=== PATIENT | female | born 1950 | race Caucasian/White ===

== ENCOUNTER 2020-02-06 21:47 | Emergency (ER) | payer MEDICARE, SELFPAY ==
[2020-02-06 21:51] VITALS: BP 169/84; PULSE 66; RESP 18; TEMP 35.9; O2SAT 100; BMI 28.3
--- NOTE | 2020-02-06 22:34 | ED_ITS ---
HPI - Allergic Reaction General Chief complaint: Allergic Reaction Stated complaint: FACIAL SWELLING Time Seen by Provider: 02/06/20 22:27 Source: patient Mode of arrival: ambulatory History of Present Illness HPI narrative: patient states about 2 hours ago started with facial swelling on the right side. No shortness of breath no wheezing no respiratory distress. Denies chest pain. Denies nausea or diaphoresis. Patient states may have eaten some shrimp that caused this. Patient denies tongue swelling. Has never happened before when the medication is a high cholesterol was called bedside on arrival to emergency department severity of illness MD complaint: facial swelling Onset (ago): hour(s) ( 2 hours) Treatment prior to arrival: none Previous Allergic Reaction History: none Related Data Allergies Allergy/AdvReac Type Severity Reaction Status Date / Time No Known Allergies Allergy Verified 02/06/20 21:56 Review of Systems Review of Systems: Yes all other systems are reviewed and are negative Constitutional: Comments: Constitutional : No Weight loss, No Fever, No Chills, No Night Sweats, No Fatigue, No Malaise ENT/Mouth : right-sided facial swelling, No Hearing loss, No Ear Pain, No Nasal Congestion, No Sinus Pain, No Hoarseness, No sore throat, No Rhinorrhea, No Swallowing Difficulty Eyes: No Eye Pain, No Swelling, No Redness, No Foreign Body, No Discharge, No Vision Changes Cardiovascular : No Chest Pain, No SOB, No Dyspnea on Exertion, No Orthopnea, No Edema, No Palpitations Respiratory : No Cough, No Sputum, No Wheezing, No Smoke Exposure, No Dyspnea Gastrointestinal : No Nausea, No Vomiting, No Diarrhea, No Constipation, No abdominal Pain, No Hematochezia, No Melena Genitourinary : no irregular bleeding, No Dysuria, No Urinary Frequency, No Hematuria, No Urinary Incontinence, No Urgency, No Flank Pain, No Urinary Flow Changes, No Hesitancy Musculoskeletal : No joint pain, No Myalgias, No Joint Swelling Skin : No Skin Lesions, No rash Neuro : No Weakness, No Numbness, No Paresthesias, No Loss of Consciousness, No Dizziness, No Headache Psych : No Anxiety/Panic, No Depression, No SI/HI/AH/VH, No Social Issues, Heme/Lymph: No Bruising, No Bleeding,No Lymphadenopathy Endocrine : No Polyuria, No Polydipsia, No Temperature Intolerance PENDING SALE TO [facility] Past Medical History Medical History (Updated 02/07/20 @ 02:46 by Rangel Kamara DO) Hyperlipidemia Family History Family History (Updated 02/06/20 @ 22:35 by Rangel Kamara DO) Other Family history non-contributory Social History Social History (Updated 02/06/20 @ 22:36 by Rangel Kamara DO) Alcohol intake: unknown Smoking Status: Current every day smoker Use of substances other than those prescribed or required for medical reasons: No Advance Directives: No Advance Directives Information Provided: No Physical Exam Vital Signs and I&O and Narrative: Vital Signs and I&O: Vital Signs Temp 96.7 F L 02/06/20 21:51 Pulse 76 02/07/20 00:22 Resp 18 02/06/20 21:51 BP 169/84 H 02/06/20 21:51 Pulse Ox 100 02/07/20 00:22 Intake & Output 02/06/20 02/06/20 02/07/20 06:59 18:59 06:59 Weight 77.111 kg Body Mass Index 28.3 reviewed pulse ox interpreted by me 100% room air Const: Other: Appearance: Alert. Oriented X3. No acute distress. Eyes: Pupils equal, round and reactive to light. ENT: Pharynx normal. right-sided upper and lower lip edema. No tongue edema. No lacerations no erythema Neck: Normal inspection. Neck supple. No lymph nodes noted. No crepitus CVS: Normal heart rate and rhythm. Pulses normal. Normal S1 and S2 Respiratory: No respiratory distress. Breath sounds normal. No Wheezing. No rales Abdomen: Soft and nontender. No rigidity. No distention. good BS x4 Skin: Skin warm and dry. Normal skin color. Normal skin turgor. Extremities: No lower extremity edema. Neurovascular intact to all extremities. No Lacerations. No Rash Neuro: Oriented X 3. No motor deficit. No sensory deficit. Moving all extermities. No slurred speech. Course Course Course Narrative: patient immediately giving IM epinephrine. IV started with IV steroids and IV Pepcid oxygen placed multiple re-evaluations by me Reevaluation(s) Reevaluation #1: re-evaluation without progression of swelling facial Time: 22:53 Reevaluation #2: read exam done with much improved swelling to the face. No wheezing. No signs of anaphylaxis at this point I discussed the patient's reasons to follow-up in the emergency department and to call 911 Time: 02:45 MDM - Allergic Reaction MDM Narrative Medical decision making narrative: 69-year-old female with facial edema most likely related to allergies. Given IM epi and IV steroids much improved after 5 hours Emergency Department will discharge home Lab Data Result diagrams: 02/06/20 22:38 02/06/20 22:38 Labs: Lab Results 02/06/20 02/06/20 Range/Units 22:38 22:38 WBC 7.1 (4.8-10.8) X10*3/uL RBC 4.64 (4.20-5.50) X10*6/uL Hgb 12.4 (12.0-16.0) g/dl Hct 38.8 (37-47) % MCV 83.6 (80-98) fL MCH 26.7 L (27.0-33.0) pg MCHC 32.0 (31.0-35.0) g/dl RDW 13.3 (11.0-16.0) % Plt Count 228 (160-400) X10*3/uL MPV 10.7 (9.4-12.3) fL Immature Gran % (Auto) 0.1 (0.0-0.4) % Neut % (Auto) 58.0 (45-73) % Lymph % (Auto) 26.9 (20-40) % [place] % (Auto) 9.2 (2-11) % Eos % (Auto) 4.7 H (0-4) % Baso % (Auto) 1.1 (0-2) % Lymph # (Auto) 1.9 (1.2-4.9) X10*3/uL [place] # (Auto) 0.7 (0.1-1.2) X10*3/uL Eos # (Auto) 0.3 (0.0-0.4) X10*3/uL Baso # (Auto) 0.1 (0.0-0.2) X10*3/uL Abs Immat Gran (auto) 0.01 (0.00-0.03) X10*3/uL Absolute Neuts (auto) 4.1 (2.0-8.3) X10*3/uL Absolute Nucleated RBC 0.000 (0.0-0.012) X10*3/uL Nucleated RBC % (auto) 0.0 (0.0-0.2) /100WBC Sodium 137 (135-145) mmol/L Potassium 4.3 (3.3-5.1) mmol/l Chloride 103 (96-108) mmol/L Carbon Dioxide 24 (22-29) mmol/L Anion Gap 14 (12-20) BUN 17 H (9-16) mg/dL Creatinine 0.83 (0.5-1.4) mg/dL Estim Creat Clear Calc 65.6 Estimated GFR > 60 Random Glucose 124 H (60-115) mg/dL Calcium 8.9 (8.4-10.2) mg/dL Critical Care Time Critical Care Time Critical Care Time: Yes Total Critical Care Time: 35 Attestation: I attest to my time spent for critical care Discharge Plan Discharge Clinical Impression: Allergic reaction Qualifiers: Encounter type: initial encounter Qualified Code(s): T78.40XA - Allergy, unspecified, initial encounter Patient Disposition: Home, Self-Care Instructions: Allergies (ED) Additional Instructions: Thank you for visiting the emergency department today. If your symptoms worsen or do not resolve completely please return to the emergency department immediately or call 911. if he have any questions please call your primary care physician Referrals: [facility] [Provider Group] - 2 days Interventions: ED Discharge Assessment Last Done: 02/07/20 03:34 Discharge Date/Time: 02/07/20 03:34
[2020-02-06] MEDS: EPINEPHrine 1 MG/ML VIAL 0.3 MG IM (22:38)
[2020-02-06] MEDS: methylPREDNISolone Sod Succ/PF 125 MG/2 ML VIAL 60 MG IVPUSH (22:43)
[2020-02-06] MEDS: Famotidine/PF 20 MG/2 ML VIAL IVPUSH (22:43)
[2020-02-06 22:45] LABS: MANUAL DIFF FLAG NO
[2020-02-06 22:47] LABS: Basophils Absolute Auto 0.1 X10*3/uL (0.0-0.2); Basophils Percent Auto 1.1 % (0-2); Eosinophils Absolute Auto 0.3 X10*3/uL (0.0-0.4); Eosinophils Percent Auto 4.7 % (0-4); Hematocrit 38.8 % (37-47); Hemoglobin 12.4 g/dl (12.0-16.0); Imm Gran Abs Auto 0.01 X10*3/uL (0.00-0.03); Imm Gran Pct Auto 0.1 % (0.0-0.4); Lymphocytes Absolute Auto 1.9 X10*3/uL (1.2-4.9); Lymphocytes Percent Auto 26.9 % (20-40); Mean Corpuscular Hemoglobin 26.7 pg (27.0-33.0); Mean Corpuscular Volume 83.6 fL (80-98); Mean Platelet Volume 10.7 fL (9.4-12.3); Monocytes Absolute Auto 0.7 X10*3/uL (0.1-1.2); Monocytes Percent Auto 9.2 % (2-11); Neutrophils Absolute Auto 4.1 X10*3/uL (2.0-8.3); Platelet Count 228 X10*3/uL (160-400); Red Blood Count 4.64 X10*6/uL (4.20-5.50); Red Cell Distribution Width 13.3 % (11.0-16.0); White Blood Count 7.1 X10*3/uL (4.8-10.8)
--- NOTE | 2020-02-06 22:48 | PC.NURSE ---
Iv access obtained, labs drawn and set. Pt medicated with epi, pepcid, and solumedrol as charted in JUN. Pt reports eating seafood earlier this evening and started experiencing some facial swelling approx 2 hours ago. No s/sx resp distress at this time, resp reg and even, talking in full, clear sentences. Spo2 96% on room air. NSR on tele rate 83.
--- NOTE | 2020-02-06 22:56 | PC.NURSE ---
YEMI ELAM [phone] [facility]
[2020-02-06 23:20] LABS: Anion Gap 14 (12-20); Blood Urea Nitrogen 17 mg/dL (9-16); Calcium 8.9 mg/dL (8.4-10.2); Carbon Dioxide 24 mmol/L (22-29); Chloride 103 mmol/L (96-108); Creatinine Clr Calc Pharmacy 65.6; Estimated Glomerular Filt Rate > 60; Glucose Random 124 mg/dL (60-115); Potassium 4.3 mmol/l (3.3-5.1); Sodium 137 mmol/L (135-145)
[2020-02-07 00:22] VITALS: PULSE 76; O2SAT 100
== END 2020-02-07 03:34 | disposition home or self-care (01) ==
PROVIDERS: Emergency Provider Emergency Medicine
DX: L27.2 Dermatitis due to ingested food (principal)
CPT/HCPCS: 36415; 80048; 85025; 96372; 96374; 96375; 99284; 99285; 99291; J2930

== ENCOUNTER 2020-04-11 05:38 | Inpatient (IN) | payer MEDICARE, SELFPAY ==
[2020-04-11] VITALS (35 sets, daily range): BP systolic 114–184; BP diastolic 58–104; PULSE 53–143; RESP 14–22; TEMP 35.8–36.7; O2SAT 95–100; BMI 31.2
--- NOTE | 2020-04-11 | CT_ITS ---
EXAMINATION: CT CHEST WITHOUT IV CONTRAST CT ABDOMEN AND PELVIS WITHOUT IV CONTRAST CLINICAL INFORMATION: Intubated patient requiring CT imaging evaluation of malignancy. COMPARISON: Chest radiograph from 04/11/2020. TECHNIQUE: Noncontrast multidetector CT imaging examination of the chest, abdomen and pelvis was performed. Axial images are displayed at 0.6 mm and 5 mm slice thickness. Coronal and sagittal reformatted images were generated at the technologist's workstation and submitted for review. This CT examination was performed using dose optimization techniques as appropriate, variously including the following: *Automated exposure control *Adjustment of mA and/or kV according to patient size (this includes techniques or standardized protocols for targeted exams where dose is matched to indication/reason for exam; i.e. extremities or head) *Use of iterative reconstruction technique DLP: 1161 mGy-cm FINDINGS: CHEST - LUNGS AND PLEURA: Endotracheal tube remains low in position with its tip at the level of the manuela, similar compared to the chest radiograph acquired earlier in the day. Recommend tube repositioning. Bronchial tobar are diffusely thickened. This suggest possibility of bronchitis or asthma. Mild atelectasis is present in the dependent right lower lobe. Secretions within left lower lobe bronchi partially occlude the bronchi, and left lower lobe is partially collapsed. No evidence of pulmonary mass. No pneumothorax. There is likely a trace amount of posterior pleural fluid, bilaterally. MEDIASTINUM/LOWER NECK: Cardiac chambers and pulmonary arteries are normal in size. Mild atherosclerosis of the thoracic aorta without aneurysm. No pericardial effusion. Thyroid gland is grossly unremarkable. No mediastinal mass. Enteric tube courses along the esophagus and into the stomach. LYMPHATICS: No pathologic sized axillary, hilar or mediastinal lymph nodes. CHEST WALL/BONES: No chest wall mass. Multilevel discovertebral degenerative change of the thoracic spine. No aggressive osseous lesions. ABDOMEN AND PELVIS - HEPATOBILIARY: Liver has normal size and contour. Surgical clips project over the region of hepatic segment 7. Small calcified granuloma within the liver. No focal liver lesion is detected on this noncontrast examination. No intrahepatic bile duct dilatation. Gallbladder is unremarkable. PANCREAS: No evidence of edema, mass or pancreatic ductal dilatation. SPLEEN: Normal size and attenuation. ADRENAL GLANDS: The adrenal glands are normal. 2.5 cm simple cyst is observed adjacent to the left adrenal gland, interposed between the tail the pancreas and upper pole of the left kidney. This cyst is probably arising from the kidney. The cyst has attenuation of 13 Hounsfield units. No suspicious lesion in this area of the abdomen. KIDNEYS AND URETERS: Kidneys are normal in size. No nephrolithiasis, hydronephrosis or perinephric edema. No evidence of a renal tumor on these noncontrast images. The ureters are unremarkable. BOWEL AND PERITONEUM: The tip of the enteric tube is in the distal stomach. No dilated loops of bowel. Moderate amount of fecal material is present within the colon. No focal bowel wall thickening. No evidence of mesenteric fat stranding, ascites or pneumoperitoneum. ABDOMINAL WALL: Unremarkable. VESSELS: Mild atherosclerosis of the abdominal aorta without aneurysm. No retroperitoneal mass or hematoma. LYMPH NODES: No pathologic sized lymph nodes in the abdomen or pelvis. No inguinal lymphadenopathy. BLADDER AND PELVIC VISCERA: Urinary bladder is decompressed by Fontenot catheter. No overt evidence of bladder mass, although evaluation of the bladder is limited. The uterus is absent. No pelvic mass or free fluid. 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 Vacuum disc degenerative changes at L2-L3, L4-5 and L5-S1. Degenerative disc disease in the lumbar spine is worst at L5-S1. Osteoarthritis of the pubic symphysis. Pelvic bones are intact. No suspicious lytic or osteoblastic lesion. CT/CT abdomen pelvis wo con IMPRESSION: * No imaging evidence of a malignant disease process in the chest, abdomen or pelvis. * Endotracheal tube remains abnormally low in position with its tip at the level of the manuela. Recommend repositioning the ET tube. * Bronchial tobar are mildly thickened, possibly from bronchitis. Mild atelectasis is present in the right lower lobe. There are secretions that occlude the left lower lobe bronchus, and left lower lobe is partially collapsed. Consider possibility of recent aspiration.
[2020-04-11] MEDS: EPINEPHrine 1 MG/ML VIAL 0.3 MG IM (05:53)
[2020-04-11] MEDS: Famotidine/PF 20 MG/2 ML VIAL IVPUSH (05:53)
[2020-04-11] MEDS: diphenhydrAMINE HCL 50 MG/ML VIAL IVPUSH (05:54)
[2020-04-11] MEDS: methylPREDNISolone Sod Succ/PF 125 MG/2 ML VIAL IVPUSH (05:55)
--- NOTE | 2020-04-11 06:09 | XR_ITS ---
EXAMINATION: XR CHEST CLINICAL INFORMATION: Intubation COMPARISON: None TECHNIQUE: Frontal view of the chest was obtained. FINDINGS: The endotracheal tube terminates approximately 1 cm above the manuela. The enteric tube extends below the diaphragm, tip not imaged. Heart size is within normal limits. There is mild patchy opacity in the medial left base with suggestion of volume loss. The lungs are otherwise relatively clear. There is no evidence of pneumothorax or significant pleural effusion. There are no acute osseous findings. A possible surgical clip projects over the right upper quadrant of the abdomen. XR/XR chest 1V IMPRESSION: Endotracheal tube is slightly low in position, terminating approximately 1 cm above the manuela. This result was discussed with Anaid Stone MD by telephone on 04/11/2020 7:11 AM. Mild patchy opacity in the medial left lung base with suggestion of volume loss, possibly representing atelectasis.
--- NOTE | 2020-04-11 06:12 | ECG_ITS ---
Test Reason : ANAPHYLAXIS Blood Pressure : / mmHG Vent. Rate : 103 BPM Atrial Rate : 103 BPM P-R Int : 198 ms QRS Dur : 094 ms QT Int : 360 ms P-R-T Axes : 057 -16 021 degrees QTc Int : 471 ms Sinus tachycardia Possible Left atrial enlargement Incomplete right bundle branch block Left ventricular hypertrophy Nonspecific ST abnormality Abnormal ECG No previous ECGs available Referred By: Anaid Stone Electronically Signed By:ZOILA BURNS
--- NOTE | 2020-04-11 06:13 | ED_ITS ---
HPI - Allergic Reaction General Chief complaint: Allergic Reaction Stated complaint: allergic reaction Time Seen by Provider: 04/11/20 05:43 Source: patient Mode of arrival: ambulatory Limitations: no limitations History of Present Illness HPI narrative: This is a 69-year-old female with past medical history of hype rlipidemia currently taking rosuvastatin who presents after having awakened this morning and finding that she had tongue swelling. She states that this is her 4th episode of facial associated swelling and she is currently being worked up but has not had a formal appointment. Otherwise, she denies any fevers, chills, cough, sore throat, chest pain/palpitations, shortness of breaths and states shannon t she is able to swallow. She denies any new beauty products, bathing products, food items, medications. Related Data Allergies Allergy/AdvReac Type Severity Reaction Status Date / Time No Known Allergies Allergy Verified 02/06/20 21:56 Review of Systems Review of Systems: Pertinent positives and negatives as stated in HPI and 10 point review of systems is otherwise negative. PMFSH Past Medical History Source: nursing notes reviewed Medical History (Updated 04/11/20 @ 07:06 by Anaid Stone MD) Angioedema Hyperlipidemia Family History Family History Other Family history non-contributory Social History Social History Alcohol intake: unknown Smoking Status: Current every day smoker Advance Directives: No Advance Directives Information Provided: No Physical Exam Vital Signs: Vital Signs: Last Vital Signs Temp 96.8 F 04/11/20 07:09 Pulse 67 04/11/20 07:18 Resp 18 04/11/20 07:18 BP 146/77 H 04/11/20 07:18 Pulse Ox 99 04/11/20 07:18 Body Mass Index 31.2 VITAL SIGNS: Reviewed. GENERAL: Well developed, well nourished, in no acute distress. HEAD: Normocephalic/atraumatic, EYES: PERRLA, EOMI intact without pain, no nystagmus/pallor/icterus noted EARS: Ext canals without abnormality, TMs non-bulging and non-erythematous NOSE: Nares patent bilateral OROPHARYNX: Right-sided tongue swelling with elevation of oral floor, no stridor or wheezing appreciated on initial examination NECK: Supple, no adenopathy LUNGS: Normal breath sounds. No adventitious sounds or accessory muscle use. SpO2<100> CARDIOVASCULAR: Regular rate and rhythm without noted murmurs, no JVD or lower extremity edema. ABDOMEN: Soft, non-tender, non-distended with bowel sounds. No rigidity. No guarding. No palpable masses or hernias noted MUSCULOSKELETAL: No tenderness, deformities, or effusions noted on gross inspection. EXTREMITIES: No cyanosis, clubbing or edema. SKIN: Inspection of the skin reveals no rashes, ulcerations, jaundice, pallor, or petechiae. NEUROLOGIC: Alert and oriented x 4. Strength and sensation to light touch were grossly intact x 4. Course Course Course Narrative: This is a 69-year-old female with history and clinical presentation consistent with acute onset angioedema unknown etiology and on initial evaluation patient was emergently treated with EpiPen, Benadryl, Pepcid, Solu-Medrol. Patient was noted to remain calm and continued to oxygenate well and was observed for a few minutes with intermittent conversation. Although patient stated that she felt her tongue was improving on clinical exam it was clear that patient's speech was becoming more garbled and the decision to intubate was made. The entire procedure was explained to the patient and she acknowledged understanding and agreed to the procedure. Patient was successfully intubated and a propofol drip was started. Patient remains hemodynamically stable, and 0GT tube was placed, Fontenot catheter was placed, labs/EKG/urinalysis were obtained. This case was discussed with Dr. Peterson, the ambulatory care coordinator, who is agreeable to the admission. All labs and imaging as well as urinalysis were reviewed. Informed by Radiology that ETT was 1 cm above the manuela and RT was notified that the tube would need to be pulled back to 24 at the lip. Procedures Intubation Time out performed: Yes sedative: Etomidate Mg Given: 20 paralytic: Rocuronium Mg Given: 90 Laryngoscope: fiber optic video scope Assist Device Used: fiber optic device ET Tube Size: 7.5 ET Tube Uncuffed: No Tube Secured Depth (cm): 25 Tube Secured Location: lips Tube Placement Confirmation: visualized tube passing through cords, equal breath sounds bilaterally and confirmation by capnometry Patient Tolerated Procedure: well Intubation Complications: none MDM - Allergic Reaction Lab Data Result diagrams: 04/11/20 06:35 04/11/20 06:35 Labs: Lab Results 04/11/20 04/11/20 04/11/20 Range/Units 06:35 06:35 06:50 WBC 8.3 (4.8-10.8) X10*3/uL RBC 4.80 (4.20-5.50) X10*6/uL Hgb 13.0 (12.0-16.0) g/dl Hct 40.9 (37-47) % MCV 85.2 (80-98) fL MCH 27.1 (27.0-33.0) pg MCHC 31.8 (31.0-35.0) g/dl RDW 13.0 (11.0-16.0) % Plt Count 219 (160-400) X10*3/uL MPV 11.1 (9.4-12.3) fL Immature Gran % (Auto) 0.6 H (0.0-0.4) % Neut % (Auto) 32.6 L (45-73) % Lymph % (Auto) 51.5 H (20-40) % [place] % (Auto) 8.8 (2-11) % Eos % (Auto) 5.3 H (0-4) % Baso % (Auto) 1.2 (0-2) % Lymph # (Auto) 4.3 (1.2-4.9) X10*3/uL [place] # (Auto) 0.7 (0.1-1.2) X10*3/uL Eos # (Auto) 0.4 (0.0-0.4) X10*3/uL Baso # (Auto) 0.1 (0.0-0.2) X10*3/uL Abs Immat Gran (auto) 0.05 H (0.00-0.03) X10*3/uL Absolute Neuts (auto) 2.7 (2.0-8.3) X10*3/uL Absolute Nucleated RBC 0.000 (0.0-0.012) X10*3/uL Nucleated RBC % (auto) 0.0 (0.0-0.2) /100WBC Sodium 139 (135-145) mmol/L Potassium 3.5 (3.3-5.1) mmol/l Chloride 107 (96-108) mmol/L Carbon Dioxide 20 L (22-29) mmol/L Anion Gap 16 (12-20) BUN 14 (9-16) mg/dL Creatinine 0.79 (0.5-1.4) mg/dL Estim Creat Clear Calc 64.8 Estimated GFR > 60 Random Glucose 158 H (60-115) mg/dL Calcium 8.3 L D (8.4-10.2) mg/dL Total Bilirubin 0.4 (0.0-1.0) mg/dL AST 21 (5-31) U/L ALT 14 (0-31) U/L Alkaline Phosphatase 140 H (39-117) U/L Total Protein 6.8 (6.5-8.0) g/dL Albumin 4.2 (3.5-5.0) g/dL Urine Color YELLOW Urine Appearance CLEAR Urine pH 6.0 (5.0-8.0) Ur Specific [place] 1.015 (1.005-1.025) Urine Protein NEG (NEG-TRACE) MG/DL Urine Glucose (UA) NEG (NEG) MG/DL Urine Ketones NEG (NEG) MG/DL Urine Blood NEG (NEG) Urine Nitrite NEG (NEG) Ur Leukocyte Esterase NEG (NEG) ECG Data Attestation: I personally reviewed and interpreted this ECG as follows: Prior ECG tracings: not available for review Interpretation: Sinus tachycardia, HR-103, incomplete RBBB, no evidence of acute ischemia, DC/QRS/QTC are within normal limits. Critical Care Time Critical Care Time Total Critical Care Time: 60 Attestation: I personally attest to this time spent taking care of the patient. Review of documentation, coordinating with consultants, review of lab work/EKG/imaging. Discharge Plan Discharge Clinical Impression: Angioedema Qualifiers: Encounter type: subsequent encounter Qualified Code(s): T78.3XXD - Angioneurotic edema, subsequent encounter Patient Disposition: Admitted As Inpatient
--- NOTE | 2020-04-11 06:15 | PC.NURSE ---
0558 PLAN FOR INTUBATION D/T ANGIOEDEMA A RESULT OF ANAPHYLAXIS. PT STATES THIS IS 4TH INCIDENT OF SMILIAR REACTION BUT SHE HAS NOT REQUIRED INTUBATION PRIOR. MD ORDERED 20 MG ETOMIDATE, 9OMG CIRILO 0601 HR 75, R17 BP 163/78 R20 0603 ETOMIDATE IN, CIRILO IN HR 94 0606 MD ATTEMPTING INTUBATION, 7.5 ET TUBE PLACED 25 @ LIP, + COLOR CHANGE, EQUAL CHEST RISE, BILAT BREATH SOUNDS. PER MD 2MG VERSED IVP NOW, PROPOFOL PER PROTOCOL FOR SEDATION 0608 2MG VERSED IN HR 143 BP 184/104 R14 02 SAT 100% VIA BVM BY RT PLAN FOR CXR FOR CONFIRMATION OF PLACEMENT, OG PLACEMENT, BAUER CATH, AND ADMISSION TO ICU
[2020-04-11] MEDS: Midazolam HCl/PF 2 MG/2 ML VIAL IVPUSH ×3 (06:18→11:16)
[2020-04-11] MEDS: 0.9 % Sodium Chloride 1,000 ML 999 ML IV (06:22)
[2020-04-11] MEDS: Etomidate 20 MG/10 ML VIAL IVPUSH (06:23)
--- NOTE | 2020-04-11 06:33 | PC.NURSE ---
PROPROFOL STARTED, UNABLE TO SCAN MEDICATION. CONFIRMED DOSAGE AND RATE WITH TRUNG KRISHNAMURTHY. CONTACTING PHARMACY ABOUT ISSUES SIGNING OUT MEDICATION IN EMAR .
[2020-04-11] MEDS: propofoL 500 MG/50 ML VIAL 9.3 MG IV (06:38)
--- NOTE | 2020-04-11 06:39 | PC.NURSE ---
pt come in with allergic reaction, tongue swollen. pt able to speak, however it was becoming difficult to speak. Medicated per jun. tolerated intubating well.lined and labs sent.18 OG- TUBE PLACED. 18 LATVIAN BAUER PLACED.
[2020-04-11 06:43] LABS: Basophils Absolute Auto 0.1 X10*3/uL (0.0-0.2); Basophils Percent Auto 1.2 % (0-2); Eosinophils Absolute Auto 0.4 X10*3/uL (0.0-0.4); Eosinophils Percent Auto 5.3 % (0-4); Hematocrit 40.9 % (37-47); Imm Gran Abs Auto 0.05 X10*3/uL (0.00-0.03); Imm Gran Pct Auto 0.6 % (0.0-0.4); Lymphocytes Absolute Auto 4.3 X10*3/uL (1.2-4.9); Lymphocytes Percent Auto 51.5 % (20-40); MANUAL DIFF FLAG NO; Mean Corpuscular HGB Conc 31.8 g/dl (31.0-35.0); Mean Corpuscular Hemoglobin 27.1 pg (27.0-33.0); Mean Corpuscular Volume 85.2 fL (80-98); Mean Platelet Volume 11.1 fL (9.4-12.3); Monocytes Absolute Auto 0.7 X10*3/uL (0.1-1.2); Monocytes Percent Auto 8.8 % (2-11); Neutrophils Absolute Auto 2.7 X10*3/uL (2.0-8.3); Neutrophils Percent Auto 32.6 % (45-73); Platelet Count 219 X10*3/uL (160-400); White Blood Count 8.3 X10*3/uL (4.8-10.8)
--- NOTE | 2020-04-11 07:00 | PC.NURSE ---
nurse to nurse received from kelle (rn). pt has allergy to shellfish,but she did not eat anything last night. covid swab done, u/a sent. appropriate meds given for angioedema. vent setting peep5, tidal volume 400, 02 at 30%. friend and family member aware of plan of care for pt.
[2020-04-11 07:12] LABS: Alanine Aminotransferase 14 U/L (0-31); Albumin Level 4.2 g/dL (3.5-5.0); Alkaline Phosphatase 140 U/L (39-117); Anion Gap 16 (12-20); Aspartate Amino Transferase 21 U/L (5-31); Bilirubin Total 0.4 mg/dL (0.0-1.0); Blood Urea Nitrogen 14 mg/dL (9-16); Calcium 8.3 mg/dL (8.4-10.2); Carbon Dioxide 20 mmol/L (22-29); Chloride 107 mmol/L (96-108); Creatinine Clr Calc Pharmacy 64.8; Estimated Glomerular Filt Rate > 60; Glucose Random 158 mg/dL (60-115); Potassium 3.5 mmol/l (3.3-5.1); Sodium 139 mmol/L (135-145); Total Protein 6.8 g/dL (6.5-8.0)
[2020-04-11 07:14] LABS: Glucose Urine UA NEG (NEG); Leukocyte Esterase Urine NEG (NEG); Nitrite Urine NEG (NEG); Specific Gravity - Urine 1.015 (1.005-1.025); Urine Blood NEG (NEG); Urine Ketones NEG (NEG); Urine Protein NEG (NEG-TRACE)
[2020-04-11 07:20] LABS: Appearance Urine CLEAR; Color Urine YELLOW
[2020-04-11 07:22] LABS: Influenza A PCR NEGATIVE (Negative); Influenza B PCR NEGATIVE (Negative); Resp Syncy Virus RNA Qual PCR NEGATIVE (Negative); SARS COV2 PCR INHOUSE NEGATIVE (Negative)
--- NOTE | 2020-04-11 07:30 | PC.NURSE ---
2nd iv to l ac #18 by this rn.
--- NOTE | 2020-04-11 07:40 | PC.NURSE ---
lungs - cta, abd soft n/t, bs + x 4. hr sounds regular.
--- NOTE | 2020-04-11 07:53 | PC.NURSE ---
tor (resp therapist) pulled back on et tube which is now at 25cm to left lip to 24cm to left lip per dr. graff.
--- NOTE | 2020-04-11 07:59 | PC.NURSE ---
pt is awake et tube in placed adjustent made by tor (resp therapist), profolol increased to 30mcg/kg/min
--- NOTE | 2020-04-11 08:13 | P.HPCC_ITS ---
History of Present Illness Date of Service: 04/11/20 [facility] Past Medical History Medical History (Updated 04/22/20 @ 00:00 by Jesus Robert) Angioedema Hyperlipidemia Hypothyroidism Family History Family History Other Family history non-contributory Social History Social History Household Members: Unknown / Unable to assess Housing: Unknown / Unable to assess Alcohol intake: unknown Smoking Status: Unknown if ever smoked Use of substances other than those prescribed or required for medical reasons: Unknown Currently Displaying Signs/Symptoms of Drug Intoxication Withdrawal: No Spiritual Healthcare Practices: unable to assess Jainism Healthcare Practices: unable to assess Cultural Healthcare Practices: unable to assess Advance Directives: No Advance Directives Information Provided: No Do you have thoughts of harming others: None Do you have a plan to hurt others: No Plan Recently lost weight without trying: Unsure service: No Current occupational status: retired Meds Allergies Allergy/AdvReac Type Severity Reaction Status Date / Time No Known Allergies Allergy Verified 02/06/20 21:56 Home Medications Medication Instructions Recorded Confirmed Type levothyroxine 1 tab PO DAILY 04/13/20 04/13/20 History simvastatin 1 tab PO BEDTIME 04/13/20 04/13/20 History Physical Exam Vital Signs: Vital Signs: Last Vital Signs Temp 96.4 F L 04/11/20 08:04 Pulse 64 04/11/20 08:04 Resp 19 04/11/20 08:04 BP 150/77 H 04/11/20 08:04 Pulse Ox 100 04/11/20 08:04 Body Mass Index 31.2 Results Labs CBC and Chem 7: 04/14/20 07:22 04/14/20 07:22 Labs: Laboratory Results - last 24 hr 04/11/20 04/11/20 04/11/20 06:35 06:35 06:35 MCV 85.2 MCH 27.1 MCHC 31.8 RDW 13.0 Plt Count 219 MPV 11.1 Immature Gran % (Auto) 0.6 H Neut % (Auto) 32.6 L Lymph % (Auto) 51.5 H [place] % (Auto) 8.8 Eos % (Auto) 5.3 H Baso % (Auto) 1.2 Lymph # (Auto) 4.3 [place] # (Auto) 0.7 Eos # (Auto) 0.4 Baso # (Auto) 0.1 Abs Immat Gran (auto) 0.05 H Absolute Neuts (auto) 2.7 Absolute Nucleated RBC 0.000 Nucleated RBC % (auto) 0.0 Anion Gap 16 Estim Creat Clear Calc 64.8 Estimated GFR > 60 Random Glucose 158 H Calcium 8.3 L D Total Bilirubin 0.4 AST 21 ALT 14 Alkaline Phosphatase 140 H Total Protein 6.8 Albumin 4.2 Urine Color Urine Appearance Urine pH Ur Specific [place] Urine Protein Urine Glucose (UA) Urine Ketones Urine Blood Urine Nitrite Ur Leukocyte Esterase Coronavirus (PCR) NEGATIVE Influenza Type A (PCR) NEGATIVE Influenza Type B (PCR) NEGATIVE RSV RNA Qual (PCR) NEGATIVE 04/11/20 06:50 MCV MCH MCHC RDW Plt Count MPV Immature Gran % (Auto) Neut % (Auto) Lymph % (Auto) [place] % (Auto) Eos % (Auto) Baso % (Auto) Lymph # (Auto) [place] # (Auto) Eos # (Auto) Baso # (Auto) Abs Immat Gran (auto) Absolute Neuts (auto) Absolute Nucleated RBC Nucleated RBC % (auto) Anion Gap Estim Creat Clear Calc Estimated GFR Random Glucose Calcium Total Bilirubin AST ALT Alkaline Phosphatase Total Protein Albumin Urine Color YELLOW Urine Appearance CLEAR Urine pH 6.0 Ur Specific [place] 1.015 Urine Protein NEG Urine Glucose (UA) NEG Urine Ketones NEG Urine Blood NEG Urine Nitrite NEG Ur Leukocyte Esterase NEG Coronavirus (PCR) Influenza Type A (PCR) Influenza Type B (PCR) RSV RNA Qual (PCR) Imaging Radiologist's Impressions: Impressions Chest X-Ray 04/11/20 06:09 IMPRESSION: Endotracheal tube is slightly low in position, terminating approximately 1 cm above the manuela. This result was discussed with Anaid Stone MD by telephone on 04/11/2020 7:11 AM. Mild patchy opacity in the medial left lung base with suggestion of volume loss, possibly representing atelectasis.
--- NOTE | 2020-04-11 08:15 | PC.NURSE ---
pt is moving,[place] eyes opened for a second, md aware propofol increased to 40mcg/kg/min per dr. castillo. vs 159/12-84-94-100%, cap36. pt is resting comfortably, pt med x 1 with versed 2mg prior to increase of propofol 40mcg/kg/min
--- NOTE | 2020-04-11 08:40 | PC.NURSE ---
pt appears slightly restless propofol increased to maximum dose of 50mcg/kg/min per dr. castillo. vs 140/89-67-100%-21. cap 37.
[2020-04-11] MEDS: propofoL 1,000 MG/100 ML VIAL 23.24 MG IVCONT ×2 (08:41→14:55)
[2020-04-11] MEDS: Midazolam HCl/PF 2 MG/2 ML VIAL 1 MG IVPUSH (08:48)
[2020-04-11] MEDS: 0.9 % Sodium Chloride 1,000 ML 100 ML IVCONT (08:56)
--- NOTE | 2020-04-11 11:00 | PC.NURSE ---
pt appears slightly restless nods her head when spoken to.
--- NOTE | 2020-04-11 11:01 | PC.NURSE ---
bed weight - 82.6kg.
--- NOTE | 2020-04-11 11:21 | PC.NURSE ---
soft restraints applied to [place] arms for pt's safety, concern for et tube dislodgement. md aware.
--- NOTE | 2020-04-11 12:33 | PM.CCHP ---
History of Present Illness Date of Service: 04/11/20 Chief Complaint: Swelling of the tongue 69-year-old female hyperlipidemic not on any medication has come in with her 4th episode of facial and or tongue swelling and apparently developed some speech issues and because of airway concerns was intubated was given steroids diphenhydramine and epinephrine and she felt clinically like the tongue swelling was diminishing but the speech problem is what precipitated the intubation No such similar history when she was younger and and there was no food intake that could have precipitated Review of Systems Review of Systems: Review of systems times 10 systems essentially negative most especially constitutionally no associated fever chills no complaints of any dental issues and she did not express any swallowing difficulty Yes all other systems are reviewed and are negative [facility] Past Medical History Medical History (Updated 04/11/20 @ 07:06 by Anaid Stone MD) Angioedema Hyperlipidemia Family History Family History Other Family history non-contributory Social History Social History Alcohol intake: unknown Smoking Status: Current every day smoker Advance Directives: No Advance Directives Information Provided: No Meds Allergies Allergy/AdvReac Type Severity Reaction Status Date / Time No Known Allergies Allergy Verified 02/06/20 21:56 Physical Exam Vital Signs: Vital Signs: Last Vital Signs Temp 97.6 F 04/11/20 12:00 Pulse 58 04/11/20 12:00 Resp 20 04/11/20 12:00 BP 124/70 04/11/20 12:00 Pulse Ox 99 04/11/20 12:00 Body Mass Index 31.2 When awake she was oriented and neurologically nonfocal Aside from significant tongue and sublingual swelling no other issue including intact skin no livedo no acrocyanosis Cardiac exam with normal S1 and normal S2 no gallops or murmurs an EKG with sinus rhythm and within normal limits Chest x-ray clear and exam with no adventitious sounds Abdomen benign with no bruits no tenderness no organomegaly Periphery there was no edema Results Labs CBC and Chem 7: 04/11/20 06:35 04/11/20 06:35 Labs: Laboratory Results - last 24 hr 04/11/20 04/11/20 04/11/20 06:35 06:35 06:35 MCV 85.2 MCH 27.1 MCHC 31.8 RDW 13.0 Plt Count 219 MPV 11.1 Immature Gran % (Auto) 0.6 H Neut % (Auto) 32.6 L Lymph % (Auto) 51.5 H [place] % (Auto) 8.8 Eos % (Auto) 5.3 H Baso % (Auto) 1.2 Lymph # (Auto) 4.3 [place] # (Auto) 0.7 Eos # (Auto) 0.4 Baso # (Auto) 0.1 Abs Immat Gran (auto) 0.05 H Absolute Neuts (auto) 2.7 Absolute Nucleated RBC 0.000 Nucleated RBC % (auto) 0.0 Anion Gap 16 Estim Creat Clear Calc 64.8 Estimated GFR > 60 Random Glucose 158 H Calcium 8.3 L D Total Bilirubin 0.4 AST 21 ALT 14 Alkaline Phosphatase 140 H Total Protein 6.8 Albumin 4.2 Urine Color Urine Appearance Urine pH Ur Specific [place] Urine Protein Urine Glucose (UA) Urine Ketones Urine Blood Urine Nitrite Ur Leukocyte Esterase Coronavirus (PCR) NEGATIVE Influenza Type A (PCR) NEGATIVE Influenza Type B (PCR) NEGATIVE RSV RNA Qual (PCR) NEGATIVE Blood Type Antibody Screen 04/11/20 04/11/20 06:50 09:12 MCV MCH MCHC RDW Plt Count MPV Immature Gran % (Auto) Neut % (Auto) Lymph % (Auto) [place] % (Auto) Eos % (Auto) Baso % (Auto) Lymph # (Auto) [place] # (Auto) Eos # (Auto) Baso # (Auto) Abs Immat Gran (auto) Absolute Neuts (auto) Absolute Nucleated RBC Nucleated RBC % (auto) Anion Gap Estim Creat Clear Calc Estimated GFR Random Glucose Calcium Total Bilirubin AST ALT Alkaline Phosphatase Total Protein Albumin Urine Color YELLOW Urine Appearance CLEAR Urine pH 6.0 Ur Specific [place] 1.015 Urine Protein NEG Urine Glucose (UA) NEG Urine Ketones NEG Urine Blood NEG Urine Nitrite NEG Ur Leukocyte Esterase NEG Coronavirus (PCR) Influenza Type A (PCR) Influenza Type B (PCR) RSV RNA Qual (PCR) Blood Type O Positive Antibody Screen NEGATIVE Imaging Radiologist's Impressions: Impressions Abdomen/Pelvis CT 04/11/20 00:00 IMPRESSION: * No imaging evidence of a malignant disease process in the chest, abdomen or pelvis. * Endotracheal tube remains abnormally low in position with its tip at the level of the manuela. Recommend repositioning the ET tube. * Bronchial tobar are mildly thickened, possibly from bronchitis. Mild atelectasis is present in the right lower lobe. There are secretions that occlude the left lower lobe bronchus, and left lower lobe is partially collapsed. Consider possibility of recent aspiration. Chest CT 04/11/20 00:00 IMPRESSION: * No imaging evidence of a malignant disease process in the chest, abdomen or pelvis. * Endotracheal tube remains abnormally low in position with its tip at the level of the manuela. Recommend repositioning the ET tube. * Bronchial tobar are mildly thickened, possibly from bronchitis. Mild atelectasis is present in the right lower lobe. There are secretions that occlude the left lower lobe bronchus, and left lower lobe is partially collapsed. Consider possibility of recent aspiration. Chest X-Ray 04/11/20 06:09 IMPRESSION: Endotracheal tube is slightly low in position, terminating approximately 1 cm above the manuela. This result was discussed with Anaid Stone MD by telephone on 04/11/2020 7:11 AM. Mild patchy opacity in the medial left lung base with suggestion of volume loss, possibly representing atelectasis. Assessment and Plan (1) Angioedema: Qualifiers: Encounter type: subsequent encounter Qualified Code(s): T78.3XXD - Angioneurotic edema, subsequent encounter Status: Acute The question is whether not with recurring episodes beginning at this age there could be an underlying C1 esterase inhibitor deficiency and whether not this could be related to an underlying disease process the no such as a lymphoproliferative malignancy so we will screen with CT scanning of chest and abdomen and pelvis and a serum protein electrophoresis looking for monoclonal gammopathy and will empirically give 2 units of fresh frozen plasma as we do not have any of the usual C1 inhibitor concentrates
[2020-04-11] MEDS: Midazolam HCl/NS 50 MG/50 ML PLAST..BAG IVCONT ×2 (12:36→21:31)
[2020-04-11] MEDS: propofoL 500 MG/50 ML VIAL 23.24 MG IV (13:10)
--- NOTE | 2020-04-11 13:41 | PC.NURSE ---
this rn tried to contact pt's sister at [phone] without any success, left [facility] contact number on voice mail. nurse to nurse given to chaparrita castano). pt to be moved to icu.
--- NOTE | 2020-04-11 14:15 | PC.NURSE ---
transported to icu via stretcher. pt's daughter jerry benton ([phone]) was called by this rn and given update on her mother. daughter updated on room number and states that this is the number to call for an burmese speaking person.
--- NOTE | 2020-04-11 17:21 | PC.NURSE ---
VO Dr Cruz - turn continuous NS fluids off till 190
--- NOTE | 2020-04-11 18:35 | PC.NURSE ---
Patient admitted from ED for angioedema - Patient arrived to unit via stretcher with Prop maxed at 50mcg and Versed at 2mg - Patient awake at times, moving all four extremities, shifting weight from side to side, bucking vent. HR down to as low as 46 when calm - Propofol gtt titrated off and versed titrated up per MD - patient stable, appears more comfortable with vent - current settings AC 20, 450 TV, PEEP 5, 50% FIO2. Significant edema to tongue - bite block placed by RT - otherwise assessment negative, VSS. Two units of thawed plasma transfused without complications. Additional PRN angio #20 left wrist placed. Air loss bed in place, high fall risk precautions in place, patient bathed and repositioned q2hr. Patients emergency contact Carmela speaks primarily Setswana - this RN updated daughter Diamond with current plan of care #[phone].
[2020-04-11] MEDS: dexAMETHasone sod phosphate 4 MG/ML VIAL IVPUSH (21:34)
[2020-04-12] VITALS (24 sets, daily range): BP systolic 125–149; BP diastolic 57–82; PULSE 51–98; RESP 13–21; TEMP 36.9–37.1; O2SAT 9–100; BMI 31.4
[2020-04-12] MEDS: 0.9 % Sodium Chloride 1,000 ML 100 ML IVCONT ×2 (00:07→10:09)
[2020-04-12 05:12] LABS: MANUAL DIFF FLAG NO
[2020-04-12 05:15] LABS: Basophils Percent Auto 0.1 % (0-2); Eosinophils Percent Auto 0.1 % (0-4); Hematocrit 36.2 % (37-47); Hemoglobin 11.8 g/dl (12.0-16.0); Imm Gran Abs Auto 0.03 X10*3/uL (0.00-0.03); Imm Gran Pct Auto 0.4 % (0.0-0.4); Lymphocytes Absolute Auto 0.7 X10*3/uL (1.2-4.9); Lymphocytes Percent Auto 9.7 % (20-40); Mean Corpuscular HGB Conc 32.6 g/dl (31.0-35.0); Mean Corpuscular Hemoglobin 26.9 pg (27.0-33.0); Mean Corpuscular Volume 82.5 fL (80-98); Mean Platelet Volume 11.8 fL (9.4-12.3); Monocytes Absolute Auto 0.4 X10*3/uL (0.1-1.2); Monocytes Percent Auto 4.7 % (2-11); Neutrophils Absolute Auto 6.4 X10*3/uL (2.0-8.3); Platelet Count 182 X10*3/uL (160-400); Red Blood Count 4.39 X10*6/uL (4.20-5.50); Red Cell Distribution Width 12.9 % (11.0-16.0); White Blood Count 7.6 X10*3/uL (4.8-10.8)
[2020-04-12 05:25] LABS: HCO3 VBG 18 mmol/L; Oxygen Saturation VBG 87.7 %; PCO2 VBG 23 mmhg; PO2 VBG 50 mmhg; pH VBG 7.52 (7.32-7.43)
[2020-04-12 05:38] LABS: Anion Gap 15 (12-20); Blood Urea Nitrogen 14 mg/dL (9-16); Calcium 8.5 mg/dL (8.4-10.2); Carbon Dioxide 17 mmol/L (22-29); Chloride 110 mmol/L (96-108); Creatinine Clr Calc Pharmacy 75.2; Estimated Glomerular Filt Rate > 60; Glucose Random 132 mg/dL (60-115); Magnesium 2.4 mg/dL (1.6-2.6); Potassium 3.9 mmol/l (3.3-5.1); Sodium 138 mmol/L (135-145)
[2020-04-12] MEDS: Midazolam HCl/NS 50 MG/50 ML PLAST..BAG IVCONT (07:31)
[2020-04-12] MEDS: dexAMETHasone sod phosphate 4 MG/ML VIAL IVPUSH (07:37)
--- NOTE | 2020-04-12 10:50 | PC.NURSE ---
Addendum entered by Gena Larson RN 04/12/20 14:26: [place] removed without difficulty. Patient due to void at 22:00. Addendum entered by Gena Larson RN 04/12/20 14:20: Patient passed nursing bedside swallow evaluation, MD notified. MD to order full liquid diet at this time and diet to be advanced at a later time. Patient educated and agreeable. Original Note: Sedation vacation started at 10:15 per MD. Leak test performed by RT. Vent settings changed by RT per MD to PS down to 5/5 fio2 30% with o2 sats trending in the high 90s. Patient able to follow commands. Patient extubated at 11:13, tolerating well on cool aerosol at 35% with o2 sats in the high 90s and HR in the 90s.
[2020-04-12 13:32] LABS: Prot Elec - Albumin 3.7 g/dL (3.8-4.8); Prot Elec - Alpha1 0.3 g/dL (0.2-0.3); Prot Elec - Alpha2 0.7 g/dL (0.5-0.9); Prot Elec - Beta 1 0.4 g/dL (0.4-0.6); Prot Elec - Beta 2 0.3 g/dL (0.2-0.5); Prot Elec - Total Protein 6.3 g/dL (6.1-8.1)
--- NOTE | 2020-04-12 13:45 | MHC.CM.PN ---
Patient's PCP is Dr Dyer in [place]. Copy of HCP obtained from office. However, it is invalid due to having only 1 witness. New HCP will be needed. Continue to monitor for d/c needs.
--- NOTE | 2020-04-12 13:58 | P.PNCC_ITS ---
Subjective Subjective Date of Service: 04/12/20 Interval History: 69-year-old lady with underlying prior history of angioedema admitted on 04/11/2020 with another episode angioedema without provoking factor, intubated in emergency room for airway protection and started on systemic glucocorticoids. This a.m. with good cuff leak and extubated uneventfully. No events overnight. Physical Exam Vital Signs: Vital Signs: Last Vital Signs Temp 98.5 F 04/12/20 12:00 Pulse 63 04/12/20 13:00 Resp 18 04/12/20 13:00 BP 141/71 H 04/12/20 13:00 Pulse Ox 100 04/12/20 13:00 Body Mass Index 31.4 Const: General: no acute distress, alert and awake Eyes: Sclerae: sclerae normal EOM: EOMs intact bilaterally Neck: Neck: Yes no lymphadenopathy, Yes trachea midline and Yes supple Resp: Effort & Inspection: normal respiratory effort and no respiratory distress Auscultation: clear to auscultation bilaterally Cardio: Rate: regular rate Rhythm: regular rhythm Heart sounds: no gallops, no murmurs and no rubs GI: Palpation (GI): Soft to palpation and Other GI palpation findings present ( Nontender) Auscultation: normal bowel sounds Extrem: General: Yes no pedal edema, No clubbing and No cyanosis Objective Data Labs CBC & Chem 7: 04/12/20 04:33 04/12/20 04:33 Labs: Laboratory Results - last 24 hr 04/11/20 04/11/20 04/12/20 09:12 09:12 04:33 WBC 7.6 RBC 4.39 Hgb 11.8 L Hct 36.2 L MCV 82.5 MCH 26.9 L MCHC 32.6 RDW 12.9 Plt Count 182 MPV 11.8 Immature Gran % (Auto) 0.4 Neut % (Auto) 85.0 H Lymph % (Auto) 9.7 L [place] % (Auto) 4.7 Eos % (Auto) 0.1 Baso % (Auto) 0.1 Lymph # (Auto) 0.7 L [place] # (Auto) 0.4 Eos # (Auto) 0.0 Baso # (Auto) 0.0 Abs Immat Gran (auto) 0.03 Absolute Neuts (auto) 6.4 Absolute Nucleated RBC 0.000 Nucleated RBC % (auto) 0.0 VBG pH VBG pCO2 VBG pO2 VBG HCO3 VBG O2 Saturation VBG Base Excess Sodium Potassium Chloride Carbon Dioxide Anion Gap BUN Creatinine Estim Creat Clear Calc Estimated GFR Random Glucose Calcium Phosphorus Magnesium Total Protein (PEP) 6.3 Albumin (PEP) 3.7 L Tzbut-1-Vyjrnbmhh 0.3 Dyqzy-7-Wbkklaujd 0.7 Dzqt-1-Rchrupod 0.4 Xxlh-7-Skcfyfoi 0.3 Gamma Globulins 1.0 PEP Interpretation SEE NOTE Blood Type O Positive Antibody Screen NEGATIVE 04/12/20 04/12/20 04:33 04:33 WBC RBC Hgb Hct MCV MCH MCHC RDW Plt Count MPV Immature Gran % (Auto) Neut % (Auto) Lymph % (Auto) [place] % (Auto) Eos % (Auto) Baso % (Auto) Lymph # (Auto) [place] # (Auto) Eos # (Auto) Baso # (Auto) Abs Immat Gran (auto) Absolute Neuts (auto) Absolute Nucleated RBC Nucleated RBC % (auto) VBG pH 7.52 H VBG pCO2 23 VBG pO2 50 VBG HCO3 18 VBG O2 Saturation 87.7 VBG Base Excess -3.0 Sodium 138 Potassium 3.9 Chloride 110 H Carbon Dioxide 17 L Anion Gap 15 BUN 14 Creatinine 0.68 Estim Creat Clear Calc 75.2 Estimated GFR > 60 Random Glucose 132 H Calcium 8.5 Phosphorus 4.0 Magnesium 2.4 Total Protein (PEP) Albumin (PEP) Kgczl-8-Txxrnsvvt Arvbs-8-Cppczhgxk Mpok-5-Ulaiptmf Qhhg-7-Tsurjprg Gamma Globulins PEP Interpretation Blood Type Antibody Screen Progress Note: A&P Assessment and plan (1) Angioedema: Status: Acute Assessment and Plan: Assessment: 69-year-old lady with prior episodes of angioedema admitted with another angioedema episode without a precipitating factor intubated for airway protection and extubated on 04/12/2020. Plan: Neuro: No acute issues. Cardiac: No acute issues. Pulmonary: Acute respiratory failure secondary to angioedema, resolved. Extubated uneventfully. C1 esterase level are pending. Continue with systemic glucocorticoids for the next to 3 days. Renal: No acute issues. Endo: No acute issues. GI: No acute issues. ID: No acute issues Heme/Onc: No acute issues. Psych: No acute issues. Miscellaneous: No acute issues. Prophylaxis: Lovenox Diet: Full liquid Critical care time spent: 40 minutes (2) Acute respiratory failure: Status: Acute Time Spent With Patient Total time spent with greater than 50% in coordination of care (as documented) at patient's floor/unit and/or counseling patient:: 0 Critical Care Time 40
--- NOTE | 2020-04-12 16:44 | MHC.CM.PN ---
Attempted to meet with patient in regards to discharge planning. Patient was intubated/vented at that time. Spoke with patient's daughter, Diamond via telephone at [phone]. Patient lives with her girlfriend, Fredy Gill. She is independent in ambulation and had no services prior to coming to the hospital. Diamond states patient was actually fixing a roof last week. Patient has a large family and Diamond doesn't feel any services will be necessary when patient is discharged. Family will transport patient home when she is medically stable. IMM explained and left bedside. Fredy can be reached via telephone at [phone]. Continue to monitor for d/c needs.
[2020-04-12] MEDS: Enoxaparin Sodium 40 MG/0.4 ML SYRINGE SUBCUT (17:13)
[2020-04-13] VITALS (7 sets, daily range): BP systolic 133–175; BP diastolic 66–91; PULSE 50–63; RESP 18–19; TEMP 36.4–36.9; O2SAT 94–98
[2020-04-13] MEDS: dexAMETHasone sod phosphate 4 MG/ML VIAL IVPUSH (08:21)
--- NOTE | 2020-04-13 11:14 | MHC.CM.PN ---
Per 's request, AMANUEL has secured an appointment with an Karate Teacher- Dr. Andrea Porras at [address] [place] [address] in [place], [address] ([phone]) for 05/19/20 at 9:30 AM. is aware of this appointment.
--- NOTE | 2020-04-13 13:07 | P.PNIM_ITS ---
Subjective Subjective Date of Service: 04/13/20 Interval History: the patient was seen and evaluated this morning Laying in bed, feels comfortable Denies any fever, chills or shortness of breath No reported other overnight events. Systemic review: No fever, chills or weakness No chest pain, palpitation No shortness of breath or coughing No abdominal pain, nausea or vomiting No urinary symptoms No any rash or wounds Physical Exam 2 Vital Signs: Vital Signs: Last Vital Signs Temp 97.9 F 04/13/20 11:06 Pulse 59 04/13/20 11:06 Resp 18 04/13/20 11:06 BP 142/70 H 04/13/20 11:06 Pulse Ox 97 04/13/20 11:06 Body Mass Index 31.4 Constitutional : Alert, oriented, not in distress Neck : Normal inspection, Supple Cardiovascular : RRR, S1 S2, no lower extremity edema Respiratory : Good bilateral air entry, no crackles, wheezes or rhonchi Gastrointestinal: soft, lax, Normal bowel sounds, Non tender Skin : Warm/Dry, No rash Neurological : Alert & oriented x3, No focal deficit Objective Data Current Medications Generic Name Dose Route Start Last Admin Trade Name Freq PRN Reason Stop Dose Admin Dexamethasone Sodium Phosphate 4 mg 04/13/20 09:00 04/13/20 08:21 Dexamethasone Sod Phosphate 4 Mg/Ml Vial IVPUSH 4 mg DAILY STEPHIE Administration Enoxaparin Sodium 40 mg 04/12/20 16:00 04/12/20 17:13 Enoxaparin Sodium 40 Mg/0.4 Ml Syringe SUBCUT 40 mg Q24H STEPHIE Administration Labs CBC & Chem 7: 04/12/20 04:33 04/12/20 04:33 Assessment and Plan (1) Acute respiratory failure: Status: Acute (2) Angioedema: Status: Acute Assessment and Plan: A 69 years old lady with PMH of NG edema, HLD and hypothyroidism presents to the hospital with difficulty breathing and angioedema. Acute hypoxic respiratory failure, resolved Angioedema Unclear etiology or provoking factors Extubated on 04/12/2020 Continue systemic steroid To follow-up as outpatient with assembler radio and electrical dr Andrea Porras [address] [place] [address] 05/19/20 930 am Plan to discharge on EpiPen HLD Continue home medication Hypothyroidism Continue levothyroxine DVT PPX Lovenox
--- NOTE | 2020-04-13 13:57 | MHC.CM.PN ---
AMANUEL spoke with Patient's Daughter/Diamond regarding dc plan and upcoming appointment with the Hse Manager. Diamond was asking about how to prevent this from happening again and AMANUEL has requested that MD give Diamond as call.
[2020-04-13 14:34] LABS: Anion Gap 16 (12-20); Blood Urea Nitrogen 16 mg/dL (9-16); Calcium 8.2 mg/dL (8.4-10.2); Carbon Dioxide 19 mmol/L (22-29); Chloride 105 mmol/L (96-108); Creatinine Clr Calc Pharmacy 64.2; Estimated Glomerular Filt Rate > 60; Glucose Random 231 mg/dL (60-115); Potassium 4.4 mmol/l (3.3-5.1); Sodium 136 mmol/L (135-145)
[2020-04-13] MEDS: Enoxaparin Sodium 40 MG/0.4 ML SYRINGE SUBCUT (16:34)
--- NOTE | 2020-04-13 22:53 | PC.NURSE ---
home meds: pt takes simvastatin and levothyroxine at home. med rec updated today, RN spoke with DR Gómez and pt's meds were reconciled. MD is holding Simvastatin, pt may continue her own Levothyroxine. The firs dose pt's own Levothyroxine ordered for tomorrow am . Pt's own med verified by hospital pharmacy and is being store in pt's specific bin on [facility] POD B
[2020-04-14 04:00] VITALS: BP 143/72; PULSE 45; RESP 18; TEMP 36.9; O2SAT 99
[2020-04-14 07:45] VITALS: BP 161/76; PULSE 60; RESP 18; TEMP 36.4; O2SAT 95
[2020-04-14 07:47] VITALS: BMI 31.2
[2020-04-14 08:16] LABS: Hematocrit 39.2 % (37-47); Hemoglobin 12.7 g/dl (12.0-16.0); Mean Corpuscular HGB Conc 32.4 g/dl (31.0-35.0); Mean Corpuscular Volume 83.2 fL (80-98); Mean Platelet Volume 11.4 fL (9.4-12.3); Platelet Count 182 X10*3/uL (160-400); Red Blood Count 4.71 X10*6/uL (4.20-5.50); Red Cell Distribution Width 12.9 % (11.0-16.0); White Blood Count 6.2 X10*3/uL (4.8-10.8)
[2020-04-14] MEDS: dexAMETHasone sod phosphate 4 MG/ML VIAL IVPUSH (08:17)
[2020-04-14 08:50] LABS: Anion Gap 13 (12-20); Blood Urea Nitrogen 14 mg/dL (9-16); Calcium 8.3 mg/dL (8.4-10.2); Carbon Dioxide 25 mmol/L (22-29); Chloride 103 mmol/L (96-108); Creatinine Clr Calc Pharmacy 68.2; Estimated Glomerular Filt Rate > 60; Glucose Random 90 mg/dL (60-115); Potassium 3.6 mmol/l (3.3-5.1); Sodium 137 mmol/L (135-145)
[2020-04-14 10:55] VITALS: BP 135/76; PULSE 55; RESP 18; TEMP 36.4; O2SAT 96
--- NOTE | 2020-04-14 11:43 | PM.DS ---
DS: Providers Provider Date of admission: 04/11/20 06:23 Primary care physician: Unknown Physician DS: Diagnosis Discharge Diagnosis (1) Acute respiratory failure: Status: Acute (2) Angioedema: Status: Acute DS: Medications Discharge Medications Home Medications: Home Medications Medication Instructions Recorded Confirmed levothyroxine 1 tab PO DAILY 04/13/20 04/13/20 simvastatin 1 tab PO BEDTIME 04/13/20 04/13/20 Previous Rx's Medication Instructions Recorded epinephrine [EpiPen 2-Rommel] 0.3 mg IM Q10M PRN #2 ea 04/14/20 DS: Summary Hospital Course Hospital Course: 69-year-old female hyperlipidemic not on any medication has come in with her 4th episode of facial and or tongue swelling and apparently developed some speech issues and because of airway concerns was intubated was given steroids diphenhydramine and epinephrine and she felt clinically like the tongue swelling was diminishing but the speech problem is what precipitated the intubation No such similar history when she was younger and and there was no food intake that could have precipitated, hospital course 69-year-old female 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 prednisone and cetrizine and EpiPen, patient will follow-up as outpatient with engineer automated equipment dr Andrea Porras [address] [place] [address] 05/19/20 930 am, Time Spent with Patient Time attestation: Total time spent providing and/or coordinating discharge services: Physical Exam Vital Signs: Vital Signs: Last Vital Signs Temp 97.6 F 04/14/20 10:55 Pulse 55 04/14/20 10:55 Resp 18 04/14/20 10:55 BP 135/76 04/14/20 10:55 Pulse Ox 96 04/14/20 10:55 Body Mass Index 31.2 DS: Data Data Completed and Pending Labs on day of discharge: 04/11/20 CT abdomen pelvis wo con Stat CT chest wo con Stat 04/11/20 05:43 EPINEPHrine [Adrenalin] 0.3 mg IM STAT STA Famotidine/PF [Pepcid/PF] 20 mg IVPUSH ONCE ONE diphenhydrAMINE HCL [Benadryl] 50 mg IVPUSH ONCE ONE methylPREDNISolone Sod Succ/PF [SOLU-MedroL] 125 mg IVPUSH ONCE ONE 04/11/20 05:44 EPINEPHrine [Adrenalin] 1 mg .ROUTE .STK-MED ONE 04/11/20 06:08 Insert/maintain urinary catheter NOW Midazolam HCl/PF [Versed] 2 mg IVPUSH ONCE ONE 04/11/20 06:09 IV insert/maintain .Now XR chest 1V Stat 04/11/20 06:10 Etomidate [Amidate] 20 mg IVPUSH ONCE ONE 04/11/20 06:12 ECG 12 lead EKG Stat EKG Documentation DIRECTED 0.9 % Sodium Chloride [Ns] 1,000 ml IV 999 mls/hr Rocuronium [place] [Zemuron] 90 mg IV ONCE ONE propofoL [Diprivan] 500 mg in 50 ml IV As directed 04/11/20 06:15 propofoL [Diprivan] 1,000 mg in 100 ml IVCONT Per Protocol mcg/kg/min 04/11/20 06:30 propofoL [Diprivan] 500 mg in 50 ml IV Per Protocol mcg/kg/min 04/11/20 06:35 Complete Blood Count Auto Diff Stat Comprehensive Met. Panel Stat SARS-CoV2/FLU/RSV Stat 04/11/20 06:50 UA CC w/rflx Micro + Cult Stat 04/11/20 08:00 Midazolam HCl/PF [Versed] 2 mg IVPUSH ONCE ONE 04/11/20 08:09 Intake and Output Q1HR Vital Signs Q1HR 04/11/20 08:10 Ventilator Assessment/Vent Bundle Q4HR Vent Settings CONT 04/11/20 08:15 0.9 % Sodium Chloride [Ns] 1,000 ml IVCONT 100 mls/hr propofoL [Diprivan] 1,000 mg in 100 ml IVCONT Per Protocol mcg/kg/min 04/11/20 08:38 Midazolam HCl/PF [Versed] 1 mg IVPUSH ONCE ONE 04/11/20 09:12 Fresh Frozen Plasma Stat Type and Screen Stat Protein Electrophoresis, Serum Stat 04/11/20 11:11 Midazolam HCl/PF [Versed] 2 mg IVPUSH ONCE ONE 04/11/20 11:30 Midazolam HCl/NS [Versed] 50 mg in 50 ml IVCONT Titrate mg/hr 04/11/20 11:45 propofoL [Diprivan] 500 mg in 50 ml IV Per Protocol mcg/kg/min 04/11/20 14:00 propofoL [Diprivan] 1,000 mg in 100 ml IVCONT Per Protocol mcg/kg/min 04/11/20 16:42 Non-behavioral order assessment ONCE 04/11/20 16:45 Midazolam HCl/NS [Versed] 50 mg in 50 ml IVCONT 2 mg/hr 04/11/20 21:00 dexAMETHasone sod phosphate [Decadron] 4 mg IVPUSH BID 04/12/20 04:33 Basic Metabolic Panel Routine Complete Blood Count Auto Diff Routine Magnesium Routine Phosphorus Routine Venous Blood Gas Routine 04/12/20 Breakfast NPO Diet 04/12/20 10:16 Extubate NOW 04/12/20 13:46 Transfer Order Routine 04/13/20 13:56 Basic Metabolic Panel DAILY@0600 04/14/20 07:22 Basic Metabolic Panel DAILY@0600 Complete Blood Count no Diff DAILY@0600 04/14/20 09:00 Levothyroxine Sodium [Synthroid] 125 mcg PO DAILY Laboratory Last Values WBC 6.2 X10*3/uL (4.8-10.8) 04/14/20 07:22 RBC 4.71 X10*6/uL (4.20-5.50) 04/14/20 07:22 Hgb 12.7 g/dl (12.0-16.0) 04/14/20 07:22 Hct 39.2 % (37-47) 04/14/20 07:22 MCV 83.2 fL (80-98) 04/14/20 07:22 MCH 27.0 pg (27.0-33.0) 04/14/20 07:22 MCHC 32.4 g/dl (31.0-35.0) 04/14/20 07:22 RDW 12.9 % (11.0-16.0) 04/14/20 07:22 Plt Count 182 X10*3/uL (160-400) 04/14/20 07:22 MPV 11.4 fL (9.4-12.3) 04/14/20 07:22 Immature Gran % (Auto) 0.4 % (0.0-0.4) 04/12/20 04:33 Neut % (Auto) 85.0 % (45-73) H 04/12/20 04:33 Lymph % (Auto) 9.7 % (20-40) L 04/12/20 04:33 [place] % (Auto) 4.7 % (2-11) 04/12/20 04:33 Eos % (Auto) 0.1 % (0-4) 04/12/20 04:33 Baso % (Auto) 0.1 % (0-2) 04/12/20 04:33 Lymph # (Auto) 0.7 X10*3/uL (1.2-4.9) L 04/12/20 04:33 [place] # (Auto) 0.4 X10*3/uL (0.1-1.2) 04/12/20 04:33 Eos # (Auto) 0.0 X10*3/uL (0.0-0.4) 04/12/20 04:33 Baso # (Auto) 0.0 X10*3/uL (0.0-0.2) 04/12/20 04:33 Abs Immat Gran (auto) 0.03 X10*3/uL (0.00-0.03) 04/12/20 04:33 Absolute Neuts (auto) 6.4 X10*3/uL (2.0-8.3) 04/12/20 04:33 Absolute Nucleated RBC 0.000 X10*3/uL (0.0-0.012) 04/14/20 07:22 Nucleated RBC % (auto) 0.0 /100WBC (0.0-0.2) 04/14/20 07:22 VBG pH 7.52 (7.32-7.43) H 04/12/20 04:33 VBG pCO2 23 mmhg 04/12/20 04:33 VBG pO2 50 mmhg 04/12/20 04:33 VBG HCO3 18 mmol/L 04/12/20 04:33 VBG O2 Saturation 87.7 % 04/12/20 04:33 VBG Base Excess -3.0 mmol/L 04/12/20 04:33 Sodium 137 mmol/L (135-145) 04/14/20 07:22 Potassium 3.6 mmol/l (3.3-5.1) 04/14/20 07:22 Chloride 103 mmol/L (96-108) 04/14/20 07:22 Carbon Dioxide 25 mmol/L (22-29) 04/14/20 07:22 Anion Gap 13 (12-20) 04/14/20 07:22 BUN 14 mg/dL (9-16) 04/14/20 07:22 Creatinine 0.75 mg/dL (0.5-1.4) 04/14/20 07:22 Estim Creat Clear Calc 68.2 04/14/20 07:22 Estimated GFR > 60 04/14/20 07:22 Random Glucose 90 mg/dL (60-115) D 04/14/20 07:22 Calcium 8.3 mg/dL (8.4-10.2) L 04/14/20 07:22 Phosphorus 4.0 mg/dL (2.7-4.5) 04/12/20 04:33 Magnesium 2.4 mg/dL (1.6-2.6) 04/12/20 04:33 Total Bilirubin 0.4 mg/dL (0.0-1.0) 04/11/20 06:35 AST 21 U/L (5-31) 04/11/20 06:35 ALT 14 U/L (0-31) 04/11/20 06:35 Alkaline Phosphatase 140 U/L (39-117) H 04/11/20 06:35 Total Protein 6.8 g/dL (6.5-8.0) 04/11/20 06:35 Total Protein (PEP) 6.3 g/dL (6.1-8.1) 04/11/20 09:12 Albumin 4.2 g/dL (3.5-5.0) 04/11/20 06:35 Albumin (PEP) 3.7 g/dL (3.8-4.8) L 04/11/20 09:12 Xfkfl-8-Hjbuqzyux 0.3 g/dL (0.2-0.3) 04/11/20 09:12 Ekeuj-1-Diwhltxns 0.7 g/dL (0.5-0.9) 04/11/20 09:12 Qefp-1-Zneopiec 0.4 g/dL (0.4-0.6) 04/11/20 09:12 Kxdr-3-Rkrtwpop 0.3 g/dL (0.2-0.5) 04/11/20 09:12 Gamma Globulins 1.0 g/dL (0.8-1.7) 04/11/20 09:12 Abnorm Protein Band 1 TNP 04/11/20 09:12 Abnorm Protein Band 2 TNP 04/11/20 09:12 Abnorm Protein Band 3 TNP 04/11/20 09:12 PEP Interpretation SEE NOTE 04/11/20 09:12 Urine Color YELLOW 04/11/20 06:50 Urine Appearance CLEAR 04/11/20 06:50 Urine pH 6.0 (5.0-8.0) 04/11/20 06:50 Ur Specific [place] 1.015 (1.005-1.025) 04/11/20 06:50 Urine Protein NEG MG/DL (NEG-TRACE) 04/11/20 06:50 Urine Glucose (UA) NEG MG/DL (NEG) 04/11/20 06:50 Urine Ketones NEG MG/DL (NEG) 04/11/20 06:50 Urine Blood NEG (NEG) 04/11/20 06:50 Urine Nitrite NEG (NEG) 04/11/20 06:50 Ur Leukocyte Esterase NEG (NEG) 04/11/20 06:50 Coronavirus (PCR) NEGATIVE (Negative) 04/11/20 06:35 Influenza Type A (PCR) NEGATIVE (Negative) 04/11/20 06:35 Influenza Type B (PCR) NEGATIVE (Negative) 04/11/20 06:35 RSV RNA Qual (PCR) NEGATIVE (Negative) 04/11/20 06:35 Blood Type O Positive 04/11/20 09:12 Antibody Screen NEGATIVE 04/11/20 09:12 Discharge Plan Discharge Anticipated Discharge Date/Time: 04/14/20 11:31 Patient Disposition: Home, Self-Care Referrals: Kendrick Liang MD [Physician] - 1 Week Danyel Flores DO [Physician] - 2 Weeks (Evaluation of recurrent angioedema attacks. requiring ICU admission and intubation last visit. ) Julio C Dyer MD [Physician] - Physician,Unknown [Primary Care Provider] - Discharge Medications: New epinephrine [EpiPen 2-Rommel] 0.3 mg/0.3 mL auto-injector 0.3 mg IM Q10M PRN (Reason: anaphylaxis) Qty: 2 RF: 0 cetirizine 10 mg tablet 10 mg PO DAILY Qty: 30 RF: 0 prednisone 20 mg tablet 20 mg PO DAILY Qty: 5 RF: 0 Continued levothyroxine 125 mcg tablet 1 tab PO DAILY RF: 0 simvastatin 20 mg tablet 1 tab PO BEDTIME RF: 0 Discharge Orders: Discharge Order (Routine); Ordered 04/14/20 Ordered By: Dominic Tapia Diet: advance to usual diet Activity on Discharge: As tolerated Discharge Date/Time: 04/14/20 14:30 Visit Report Forms: Patient Portal Discharge page Care Plan Goals: prevent angioedema Health Concerns: recurrent angioedema Plan of Treatment: EpiPen and p.o. prednisone follow-up as outpatient with engineer automated equipment dr Andrea Porras [address] [place] [address] 05/19/20 930 am
--- NOTE | 2020-04-14 11:49 | MHC.CM.PN ---
Patient has been medically cleared for dc to home today, no services. Last IMM addressed on 04/12/20.
== END 2020-04-14 14:30 | disposition home or self-care (01) | DRG 915 ==
LOC: HO.ED 06:29 → HO.ICU 13:43 → HO.IMC 04-12 16:23
PROVIDERS: Internal Medicine Pulmonary Disease; Physician Assistant; Student in an Organized Health Care Education/Training Program; Admitting Provider Internal Medicine Cardiovascular Disease; Emergency Provider Student in an Organized Health Care Education/Training Program; Visit Provider Internal Medicine
DX: T78.3XXA Angioneurotic edema, initial encounter (principal); J96.01 Acute respiratory failure with hypoxia; E03.9 Hypothyroidism, unspecified; E78.5 Hyperlipidemia, unspecified; Z20.828 Contact with and (suspected) exposure to other viral communicable diseases; Z79.890 Hormone replacement therapy; Z79.899 Other long term (current) drug therapy
CPT/HCPCS: 0241U; 36415; 71045; 71250; 74176; 80048; 80053; 81003; 82803; 83735; 84100; 84155; 84165; 85025; 85027; 86160; 86850; 86900; 86901; 92610; 93005; 94002; 94003; 96361; 96372; 96374; 96375; 96376; 99285; 99291; J0171; J1100; J1200; J1650; J2250; J2930; P9017

== ENCOUNTER 2023-11-27 08:21 | Outpatient (REF) | payer MEDICARE, SELFPAY ==
--- NOTE | 2023-11-27 08:25 | EMG_ITS ---
Left tibial and peroneal motor studies were performed. Left superficial peroneal, sural and medial lateral plantar mixed studies were performed. Tibial H-reflex was obtained. Needle examination was performed. IMPRESSION: Moderately severe axonal sensory motor peripheral neuropathy. MD BRITTNEY Melton/SEAMUS / [id number]
== END 2023-11-27 08:22 | disposition home or self-care (01) ==
LOC: HO.NEURO 08:21
PROVIDERS: PCP Internal Medicine; Visit Provider Internal Medicine
DX: R20.0 Anesthesia of skin (principal)
CPT/HCPCS: 95886; 95910